=== PATIENT | female | born 1985 | race Caucasian/White ===

== ENCOUNTER 2019-04-30 11:06 | Emergency (ER) | payer OTHER ==
[2019-04-30 11:14] VITALS: PULSE 72; TEMP 98.8; BMI 25.8
[2019-04-30] MEDS ORDERED: SODIUM CHLORIDE 1,000 ML IV STA (11:37)
[2019-04-30] MEDS ORDERED: ACETAMINOPHEN 325 MG TABLET (FP) PO ONE (12:05)
--- NOTE | 2019-04-30 12:41 | PDOC ---
Documentation entered by Savi Forte SCRIBE, acting as scribe for Serenity De Dios MD. Serenity De Dios MD: This documentation has been prepared by the scribe, Savi Forte SCRIBE, under my direction and personally reviewed by me in its entirety. I confirm that the documentation accurately reflects all work, treatment, procedures, and medical decision making performed by me. History of Present Illness - General Chief Complaint: Vaginal Bleeding Stated Complaint: VAGINAL BLEEDING Time Seen by Provider: 04/30/19 11:39 History Source: Patient Exam Limitations: No Limitations - History of Present Illness Initial Comments: 04/30/19 12:23 The patient is a 33-year-old female who is 6-weeks , A0, with a past medical history of OCD, recurrent UTIs (has been on Keflex for a year now) , who presents to the ED with vaginal bleeding that began this morning. She states that she is experiencing a regular amount of bleeding with bright red clots (blood is red in color) and associated suprapubic pain and abdominal cramping. LMP was 03/20/19 with a positive test x multiple checks, last checked at home 2 days ago and still positive. The patient is visiting from [place] for a wedding here in [place]. She has yet to receive care, but will proceed to find a doctor once she is home in [place]. The patient denies any fevers, chills, nausea, vomiting, or diarrhea. Denies any chest pain or shortness of breath. Denies any urinary symptoms. Denies any headache, weakness, dizziness, lightheadedness, or changes in a strength or sensation. Allergies: NKDA Social History: Denies any tobacco, alcohol, or drug use. Lives in [place]. Surgical History: Hymen removal (at age 14). 04/30/19 12:33 Past History - Past Medical History Allergies/Adverse Reactions: Allergies Allergy/AdvReac Type Severity Reaction Status Date / Time No Known Allergies Allergy Verified 04/30/19 11:14 Home Medications: Ambulatory Orders Cephalexin [Keflex] 0 mg PO ASDIR 04/30/19 Citalopram Hydrobromide [Celexa -] 0 mg PO DAILY 04/30/19 Loratadine [Claritin] 10 mg PO DAILY 04/30/19 COPD: No Psychiatric Problems: (OCD) - Reproductive History Is Patient Now?: Yes (#): 1 Para: 0 Therapeutic (s) & number: No - Suicide/Smoking/Psychosocial Hx Smoking History: Never smoked Review of Systems - Review of Systems Able to Perform ROS?: Yes Comments:: 04/30/19 12:24 GENERAL/CONSTITUTIONAL: No fever or chills. No weakness. no sweats. HEAD, EYES, EARS, NOSE AND THROAT: no headache or dizziness. CARDIOVASCULAR: No chest pain or palpitations, syncope or edema. RESPIRATORY: No SOB, cough, wheezing, or hemoptysis. GASTROINTESTINAL (+)Abdominal pain, cramping. No nausea/vomiting. No diarrhea or constipation. No bloody stools. GENITOURINARY: (+)Vaginal bleeding. No dysuria, frequency, urgency or other changes. no discharge MUSCULOSKELETAL: No joint or muscle swelling or pain. No decreased range of motion. No neck or back pain. SKIN: No rash or changes in skin color or lesions. No wounds. NEUROLOGIC: alert and oriented appropriately No headache, dizziness, loss of consciousness, or change in strength/sensation. HEMATOLOGIC/LYMPHATIC: No anemia, easy bruising/bleeding, or history of blood clots. ALLERGIC/IMMUNOLOGIC: No allergies PSYCH: no anxiety/depression All other systems reviewed and negative, or as documented in HPI. 04/30/19 12:36 *Physical Exam - Vital Signs Last Vital Signs Temp Pulse Resp BP Pulse Ox 98.8 F 72 18 104/71 97 04/30/19 11:09 04/30/19 11:09 04/30/19 11:09 04/30/19 11:09 04/30/19 11:09 - Physical Exam Comments: 04/30/19 12:25 General: Well appearing, awake and alert, NAD. HEENT: NCAT, PERRL, EOMI, clear conjunctiva, anicteric, moist mucus membranes, clear oropharynx, no oral lesions.. Neck: neck supple, FROM Resp: CTAB, normal and even respirations, no respiratory distress CVS: RRR, no murmurs, 2+ peripheral pulses throughout, no peripheral edema Abdomen: soft, ND, no rebound or guarding. No CVAT. +lower pelvic TTP. Pelvic: normal external genitalia, no lesions, no CMT, no adnexal tenderness. Smooth and pink cervix, closed. (+)Copious amounts of blood in the vaginal vault. Back: nontender, normal inspection and ROM MSK: no edema, ESCOBAR x4, ROM intact. No clubbing or cyanosis. normal bulk and tone. Extremities: no calf tenderness Neuro: alert, oriented appropriately; no focal neurologic deficits Skin: warm and well perfused, cap refill <2 sec, normal color Psych: anxious/tearful. 04/30/19 12:37 ED Treatment Course - LABORATORY CBC & Chemistry Diagram: 04/30/19 12:31 04/30/19 12:31 - RADIOLOGY Radiology Studies Ordered: Category Date Time Status TRANSVAGINAL US PREG [US] Stat Ultrasound 04/30/19 12:04 Ordered Medical Decision Making - Medical Decision Making 04/30/19 12:38 33 year old female presents with first trimester vaginal bleeding. Possible etiologies of the vaginal of bleeding were considered, including but not limited to: ectopic , spontaneous miscarriage, gestational trophoblastic disease, implantaton bleeding, molar , anemia, electrolyte/metabolic abnormalities and fibroids. Clinically the patient looks well, no indications for transfusion and no signs or symptoms of peritonitis. VS reviewed, normotensive, mentating. no systemic findings, no tachycardia. Rh positive, no rhogam indicated VS wnl, abdomen with lower abdominal pain, VB controlled with pads. Beta hcg ~500 TVUS no IUP seen, no FF, ovaries unremarkable, normal flow seen; so doubt ectopic, more likely spontaneous bedside counseling given regarding findings, reassurance. feels improved after analgesics, IVF, abdomen benign, comfortable with discharge. Additional labs demonstrated: After careful consideration I believe the patient is safe to be discharged home with outpatient [facility] followup. I had an extensive discussion with the patient about the possible etiologies of the vaginal bleeding and answered all their questions. I also provided education on care. The patient is agreeable to outpatient [employer] for a 48 hour BETA- HCG. I encouraged them to call if they have any questions and return to the ED for any worsening of symptoms. her care is in [place], so told to f/u [facility] there, referrals here given or return to ED if worsening symptoms. 04/30/19 13:12 04/30/19 13:14 04/30/19 13:21 04/30/19 13:04/30/19 13:59 *DC/Admit/Observation/Transfer Diagnosis at time of Disposition: Spontaneous - Discharge Dispostion Disposition: HOME Condition at time of disposition: Good Decision to Admit order: No - Referrals Referrals: Darin Negron MD [Staff Physician] - Tim Chopra MD [Staff Physician] - Rajani Bhatti MD [Staff Physician] - Taya Whitaker MD [Staff Physician] - - Patient Instructions Printed Discharge Instructions: DI for Miscarriage Additional Instructions: You were evaluated here in the department for vaginal bleeding Ultrasound and labs revealed no evidence of intrauterine gestation, no fluid, this is most likely a miscarriage your blood work was all normal your beta hcg is 500 - this needs to be checked until it goes to zero You should return to the hospital if you continue to have persistent and heavy vaginal bleeding, persistent pelvic pain not relieved by your prescribed medications, dizziness, shortness of breath, new and persistent fevers, other foul smelling discolored vaginal discharge, or for any other concerns. You should follow up with an [facility] in 1 week for clinical reevaluation. you can see your OB in [place], and our referrals also provided here. - Post Discharge Activity
[2019-04-30 12:44] LABS: BASO % 0.5 % (0-2.0); EOS % 3.2 % (0-4.5); HEMATOCRIT 39.1 % (32.4-45.2); HEMOGLOBIN 13.3 GM/dL (10.7-15.3); LYMPH % 19.1 % (8-40); MCHC 33.9 g/dl (32.0-36.0); MEAN CELL VOLUME 91.3 fl (80-96); MEAN PLT VOLUME 8.3 fl (7.5-11.1); MONO % 8.8 % (3.8-10.2); NEUT % 68.4 % (42.8-82.8); RBC 4.28 M/mm3 (3.60-5.2); RDW 13.1 % (11.6-15.6); WHITE BLOOD COUNT 7.6 K/mm3 (4.0-10.0)
[2019-04-30 13:02] LABS: PLATELET COUNT 308 K/MM3 (134-434)
[2019-04-30 13:05] LABS: ALBUMIN 3.6 g/dl (3.4-5.0); BILIRUBIN,TOTAL 0.4 mg/dL (0.2-1); BLOOD UREA NITROGEN 11.4 mg/dL (7-18); CALCIUM 8.9 mg/dL (8.5-10.1); CREATININE 0.5 mg/dL (0.55-1.3); POTASSIUM 4.9 mmol/L (3.5-5.1)
[2019-04-30] MEDS ORDERED: KETOROLAC TROMETHAMINE 15 MG/ML VIAL IVPUSH ONE (13:14)
[2019-04-30] MEDS ORDERED: KETOROLAC TROMETHAMINE 15 MG/ML VIAL ONE (13:32)
[2019-04-30] MEDS ORDERED: ACETAMINOPHEN 325 MG TABLET (FP) ONE (13:32)
[2019-04-30 13:59] VITALS: BP 104/76
== END 2019-04-30 14:01 | disposition home or self-care (01) ==
LOC: JER 11:06
DX: O26.891 Other specified pregnancy related conditions, first trimester (principal); O03.9 Complete or unspecified spontaneous abortion without complication; Z87.440 Personal history of urinary (tract) infections; Z79.2 Long term (current) use of antibiotics; Z3A.01 Less than 8 weeks gestation of pregnancy
CPT/HCPCS: 36415; 76817-TC; 80053; 84702; 85025; 86850; 86900; 86901; 99283-25; J7030